=== PATIENT | female | born 1945 | race Caucasian/White ===

== ENCOUNTER → 2016-11-11 | Outpatient (CLI) | payer MEDICARE, OTHER ==
--- NOTE | 2016-11-11 15:31 | RADRPT ---
PROCEDURE: Right knee radiographs. CLINICAL INDICATION: Right knee pain. TECHNIQUE: Two views. Frontal and lateral. COMPARISON: No prior studies are available for comparison. FINDINGS: There is no fracture or dislocation. The soft tissues are normal. There are mild degenerative changes with small osteophytes noted arising from all 3 joint compartmen t margins. There is no lytic or blastic lesion. There is no joint effusion. IMPRESSION: 1. Mild degenerative changes of the right knee. 2. Otherwise unremarkable images of the right knee. RPTAT: QQ .Mark Cuenca MD, MD Date Time Electronically viewed and signed by .Mark Cuenca MD, MD on 11/11/2016 15:31 .R/
== END | disposition home or self-care (01) ==
LOC: HKI 14:21
PROVIDERS: ATTEND Orthopaedic Surgery
DX: S82.034D Nondisplaced transverse fracture of right patella, subsequent encounter for closed fracture with routine healing (principal)
CPT/HCPCS: 73560; G0463

== ENCOUNTER → 2016-12-02 | Outpatient (CLI) | payer MEDICARE, OTHER ==
--- NOTE | 2016-12-02 14:54 | RADRPT ---
PROCEDURE: Right knee radiographs. CLINICAL INDICATION: Right knee pain. TECHNIQUE: Two views. Weight bearing. Frontal and lateral. COMPARISON: 11/11/2016. FINDINGS: There is no fracture or dislocation. The soft tissues are normal. There are mild degenerative changes with small osteophytes arising from all 3 joint compartment eve ins. There is no lytic or blastic lesion. There is no joint effusion. IMPRESSION: 1. Mild degenerative change. 2. Otherwise unremarkable images of the right knee. RPTAT: QQ .Mark Cuenca MD, MD Date Time Electronically viewed and signed by .Mark Cuenca MD, MD on 12/02/2016 14:54 .R/
== END | disposition home or self-care (01) ==
LOC: HKI 13:32
PROVIDERS: ATTEND Orthopaedic Surgery
DX: S82.034D Nondisplaced transverse fracture of right patella, subsequent encounter for closed fracture with routine healing (principal); W18.30XD Fall on same level, unspecified, subsequent encounter
CPT/HCPCS: 73560; G0463

== ENCOUNTER → 2017-01-16 | Outpatient (CLI) | payer MEDICARE, OTHER ==
[~2017-01-16] MED LIST: IOHEXOL 300MG/ML 150 ML BTL ONE; SOD CHLORIDE 0.9% 100 ML ONE
--- NOTE | 2017-01-16 17:11 | RADRPT ---
PROCEDURE: Right knee radiographs. CLINICAL INDICATION: Right knee pain. TECHNIQUE: Two views. Frontal and lateral. COMPARISON: 12/02/2016. FINDINGS: There is no fracture or dislocation. The soft tissues are normal. There are mild degenerative changes with small osteophytes arising from all 3 joint compartment eve ins. There is no lytic or blastic lesion. There is no joint effusion. IMPRESSION: 1. Mild degenerative change. 2. Otherwise unremarkable images of the right knee. 3. No change from 11/11/2016. RPTAT: QQ .Mark Cuenca MD, MD Date Time Electronically viewed and signed by .Mark Cuenca MD, MD on 01/16/2017 17:10 .R/
== END | disposition home or self-care (01) ==
LOC: HKI 09:51
PROVIDERS: ATTEND Orthopaedic Surgery
DX: S82.034D Nondisplaced transverse fracture of right patella, subsequent encounter for closed fracture with routine healing (principal); W01.0XXD Fall on same level from slipping, tripping and stumbling without subsequent striking against object, subsequent encounter; M25.561 Pain in right knee
CPT/HCPCS: 73560; G0463; Q9967

== ENCOUNTER → 2017-05-17 | Outpatient (CLI) | payer MEDICARE, OTHER ==
--- NOTE | 2017-05-17 13:43 | RADRPT ---
PROCEDURE: XR Left hip and pelvis. CLINICAL INDICATION: Left hip pain and pelvic pain. TECHNIQUE: 3 views. Frontal pelvis. Frontal and lateral left hip. COMPARISON: None. FINDINGS: There is no fracture or dislocation. The soft tissues are normal. There are mild degenerative changes of both hips with osteophytes noted. There are degenerative bel nges of the lower lumbar spine. There is no lytic or blastic lesion. There is no radiopaque foreign body. IMPRESSION: 1. Mild degenerative changes of both hips. 2. Degenerative changes of the lower lumbar spine. RPTAT: QQ .Mark Cuenca MD, MD Date Time Electronically viewed and signed by .Mark Cuenca MD, on 05/17/2017 13:43 .R/
--- NOTE | 2017-05-17 13:43 | RADRPT ---
PROCEDURE: Right knee radiographs. CLINICAL INDICATION: Right knee pain. TECHNIQUE: Four views. Weight bearing. Frontal, lateral, oblique, and patellar view. COMPARISON: 01/16/2017. FINDINGS: There is a healing nondisplaced fracture of the patella. The soft tissues are normal. There are mild degenerative changes with small osteophytes arising from all 3 joint compartment eve ins. There is no lytic or blastic lesion. There is no radiopaque foreign body. IMPRESSION: 1. Healing nondisplaced fracture of the patella. 2. Mild degenerative change. RPTAT: QQ .Mark Cuenca MD, Date Time Electronically viewed and signed by .Mark Cuenca MD, on 05/17/2017 13:42 .R/
== END | disposition home or self-care (01) ==
LOC: HKI 08:35
PROVIDERS: ATTEND Orthopaedic Surgery
DX: M17.11 Unilateral primary osteoarthritis, right knee (principal); M70.62 Trochanteric bursitis, left hip
CPT/HCPCS: 73502; 73564; G0463

== ENCOUNTER → 2017-12-21 | Outpatient (CLI) | END | disposition home or self-care (01) ==

== ENCOUNTER → 2018-03-28 | Outpatient (CLI) | END | disposition home or self-care (01) ==